=== PATIENT | female | born 1960 ===

== ENCOUNTER 2018-07-03 13:30 | Inpatient (IN) | payer OTHER ==
[~2018-07-03] VITALS: Ht 157.5 cm; Wt 91.6 kg
[~2018-07-03 13:30] MED LIST: ALPRAZOLAM1 M1 PO; ALTACE2.5 MG PO; AMBIEN10 MG PO; ASPIR 8181 MG PO; CARVEDILOL3.125 MG PO; CIPRO750 MG PO; CIPRODEX OTIC7.5 ML OT; CLEOCIN HCL300 MG PO; Colace 100MG PO; GABAPENTIN PO; ISORBIDE; LEVAQUIN500 MG PO; METFORMIN HCL500 MG PO; NEURONTIN PO; NITROSTAT0.3 MG SL; PERCOCET 5/3251 TAB PO; RANITIDINE HCL300 M1 PO; RESTORIL PO; TRAZODONE HCL100 MG PO; VICODIN 5-3001 EACH PO; [UNRECOGNIZED DRUG - OTHER] PO
[2018-07-06] MEDS ORDERED: PERCOCET 5-3251 EACH PO (10:06)
[2018-07-06] MEDS ORDERED: CLONAZEPAM1 MG PO (10:06)
[2018-07-06] MEDS ORDERED: COLACE100 MG PO (10:06)
== END 2018-07-07 15:58 | disposition home or self-care (01) | DRG 454 ==
LOC: O/R 07-06 04:50 → SURH 07-06 04:50 → SURG 07-06 09:00 → SURH 07-06 19:31
PROVIDERS: Orthopaedic Surgery Orthopaedic Surgery of the Spine
PROC: 0RG2071 Fusion of 2 or more Cervical Vertebral Joints with Autologous Tissue Substitute, Posterior Approach, Posterior Column, Open Approach (ICD-10-PCS; 2018-07-06)
PROC: 0RT30ZZ Resection of Cervical Vertebral Disc, Open Approach (ICD-10-PCS; 2018-07-06)
PROC: 07DS3ZZ Extraction of Vertebral Bone Marrow, Percutaneous Approach (ICD-10-PCS; 2018-07-06)
PROC: 0RG20A0 Fusion of 2 or more Cervical Vertebral Joints with Interbody Fusion Device, Anterior Approach, Anterior Column, Open Approach (ICD-10-PCS; principal; 2018-07-06 09:00)
DX: M50.021 Cervical disc disorder at C4-C5 level with myelopathy (principal); M47.12 Other spondylosis with myelopathy, cervical region; E11.9 Type 2 diabetes mellitus without complications; I10 Essential (primary) hypertension